=== PATIENT | female | born 1980 ===

== ENCOUNTER 2022-01-26 09:54 | Day surgery (SDC) | payer OTHER ==
[~2022-01-26 09:54] MED LIST: MULTI VITAMIN1 EACH PO; NUVARING VAGIN1 EACH IV
== END 2022-01-26 16:40 | disposition home or self-care (01) ==
LOC: CIR.AMB 09:54
PROVIDERS: ATTEND Colon & Rectal Surgery
DX: K60.0 Acute anal fissure (principal); R19.5 Other fecal abnormalities; K64.2 Third degree hemorrhoids

== ENCOUNTER 2022-04-21 08:58 | Day surgery (SDC) | payer OTHER ==
[~2022-04-21] VITALS: Ht 177.8 cm; Wt 68.0 kg
== END 2022-04-21 17:50 | disposition home or self-care (01) ==
LOC: CIR.AMB 08:58
PROVIDERS: ATTEND Colon & Rectal Surgery
DX: K60.0 Acute anal fissure (principal); K64.2 Third degree hemorrhoids; Z20.822 Contact with and (suspected) exposure to COVID-19; R73.03 Prediabetes